=== PATIENT | female | born 2000 | race Hispanic/Latino ===

== ENCOUNTER 2024-06-06 06:56 | Emergency (ER) | payer BC, SELFPAY ==
[2024-06-06] MEDS ORDERED: NA CHLORIDE 0.9% 1,000 ML ONE (07:25)
[2024-06-06 07:30] LABS: Absolute Eosinophils 0.2 K/uL (0-0.5); Absolute Lymphocytes (CBC) 1.3 K/uL (0.7-4.9); Absolute Monocytes 0.4 K/uL (0.1-1.3); Absolute Neutrophil 2.8 K/uL (1.8-8.0); Hematocrit 37.7 % (36.0-45.0); Hemoglobin 12.5 g/dL (12.0-15.0); Lymphocytes % 27.5 % (15.3-44.8); MCH 29.9 pg (27.0-35.0); MCHC 33.1 g/dL (32.0-36.0); MCV 90.2 fL (80-100); MPV 8.7 fL (7.6-11.3); Neutrophils % 58.5 % (41.7-73.7); Platelets 195 thou/uL (152-406); RBC Red Blood Cell Count 4.18 M/uL (3.86-4.86); Red Cell Distribution Width 12.7 % (12.1-15.2)
[2024-06-06 07:44] LABS: Albumin 3.6 g/dL (3.4-5.0); Albumin/Globulin Ratio 1.1 (1.1-1.8); Anion Gap 8.7 mEq/L (5.0-15.0); Bilirubin Total 0.4 mg/dL (0.2-1.0); Globulin 3.3 g/dL (2.3-3.5); Potassium 3.7 mEq/L (3.5-5.1); Protein, Total 6.9 g/dL (6.4-8.2)
--- NOTE | 2024-06-06 08:18 | ER ---
Nurse's Notes [facility] Name: Yina Duran Age: 24 yrs Sex: Female : 2000 Arrival Date: 06/06/2024 Time: 06:56 Bed 17 Private MD: Diagnosis: Alcohol use, unspecified;Syncope Near;Hypoglycemia, unspecified Presentation: 06/06 06:57 Chief complaint: EMS states: PT passed out and hit tile floor with head, c/o head pain, bm8 neck pain. Blood sugar was checked, 55. we gave oral glucose and now its 88. Coronavirus screen: At this time, the client does not indicate any symptoms associated with coronavirus-19. Ebola Screen: Patient negative for fever greater than or equal to 101.5 degrees Fahrenheit, and additional compatible Ebola Virus Disease symptoms Patient denies exposure to infectious person. Patient denies travel to an Ebola-affected area in the 21 days before illness onset. No symptoms or risks identified at this time. 06:57 Method Of Arrival: EMS: [facility] bm8 07:00 Initial Sepsis Screen: Does the patient meet any 2 criteria? No. Patient's initial bm8 sepsis screen is negative. Does the patient have a suspected source of infection? No. Patient's initial sepsis screen is negative. Risk Assessment: Do you want to hurt yourself or someone else? Patient reports no desire to harm self or others. Onset of symptoms was June 06, 2024 at 06:00. Care prior to arrival: Cervical collar in place. IV initiated. 20 GA, in the left antecubital area, Glucose check: 88. 07:00 Acuity: ABBI 3 bm8 Triage Assessment: 07:00 General: Appears in no apparent distress. comfortable, Behavior is calm, cooperative, bm8 appropriate for age. Pain: Complains of pain in head and neck Pain currently is 0 out of 10 on a pain scale. EENT: No deficits noted. Neuro: Level of Consciousness is awake, alert, obeys commands, Oriented to person, place, time, situation, Appropriate for age. Cardiovascular: Denies chest pain, Capillary refill < 3 seconds in bilateral fingers Patient's skin is warm and dry. Respiratory: Airway is patent Respiratory effort is even, unlabored, Respiratory pattern is regular, symmetrical, Breath sounds are clear bilaterally. GI: No signs and/or symptoms were reported involving the gastrointestinal system. : No signs and/or symptoms were reported regarding the genitourinary system. Derm: No signs and/or symptoms reported regarding the dermatologic system. Musculoskeletal: Circulation, motion, and sensation intact. Capillary refill < 3 seconds, in bilateral fingers. Reports pain in head and neck. 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 - Infectious Disease History:: Denies. - Family history:: not pertinent. - Social history:: Smoking status: Patient denies any tobacco usage or history of. Screenin:00 [facility] ED Fall Risk Assessment (Adult) History of falling in the last 3 months, rs5 including since admission Yes- single mechanical fall (1 pt) Confusion or Disorientation No (0 pts) Intoxicated or Sedated No (0 pts) Impaired Gait No (0 pts) Mobility Assist Device Used No (0 pt) Altered Elimination No (0 pt) Score/Fall Risk Level 0 - 2 = Low Risk Oriented to surroundings, Maintained a safe environment. Abuse screen: Denies threats or abuse. Nutritional screening: No deficits noted. Tuberculosis screening: No symptoms or risk factors identified. Assessment: 07:00 General: Appears in no apparent distress. uncomfortable, Behavior is calm, cooperative. rs5 Pain: Complains of pain in back of head Pain currently is 3 out of 10 on a pain scale. Quality of pain is described as aching, Is continuous. Neuro: Level of Consciousness is awake, alert, obeys commands, Oriented to person, place, time, situation. Cardiovascular: Patient's skin is warm and dry. Respiratory: Airway is patent Respiratory effort is even, unlabored, Respiratory pattern is regular, symmetrical. GI: Abdomen is round non-distended, Abd is soft and non tender X 4 quads. : No signs and/or symptoms were reported regarding the genitourinary system. EENT: No signs and/or symptoms were reported regarding the EENT system. Derm: Skin is intact, Skin is pink, warm \T\ dry. Musculoskeletal: Range of motion: intact in all extremities. 08:01 Reassessment: Patient and/or family updated on plan of care and expected duration. Pain rs5 level reassessed. Patient is alert, oriented x 3, equal unlabored respirations, skin warm/dry/pink. 08:40 Reassessment: Patient and/or family updated on plan of care and expected duration. Pain rs5 level reassessed. Patient is alert, oriented x 3, equal unlabored respirations, skin warm/dry/pink. Vital Signs: 06:57 BP 100 / 80; Pulse 100; Resp 18; Temp 97.8; Pulse Ox 100% ; Weight 56.7 kg; Height 5 bm8 ft. 8 in. ; Pain 0/10; 08:50 BP 110 / 79; Pulse 74; Resp 17; Pulse Ox 99% on R/A; rs5 06:57 Body Mass Index 19.01 (56.70 kg, 172.72 cm) bm8 06:57 Pain Scale: Adult bm8 ED Course: 06:57 Patient arrived in ED. bm8 07:00 Arm band placed on right wrist. bm8 07:00 Patient has correct armband on for positive identification. Placed in gown. Side rails rs5 up X2. 07:00 No provider procedures requiring assistance completed. rs5 07:01 Triage completed. bm8 07:02 Martinez Fair MD is Attending Physician. [facility] 07:12 Justus Ontiveros, RN is Primary Nurse. rs5 07:26 Head C Spine Mpr Wo Con In Process Unspecified. EDMS 08:49 IV discontinued, intact, bleeding controlled, No redness/swelling at site. Pressure rs5 dressing applied. 08:50 Provided Education on: discharge instruction s. rs5 Administered Medications: 07:15 Drug: NS 0.9% IV 1000 ml IV at 1000 ml once; to be given as a bolus over 60 minutes rs5 Route: IV; Rate: 1000 ml; Site: left antecubital; 08:00 Follow up: Response: No adverse reaction; IV Status: Completed infusion; IV Intake: rs5 1000ml Medication: 08:50 VIS not applicable for this client. rs5 Intake: 08:00 IV: 1000ml; Total: 1000ml. rs5 Outcome: 08:18 Discharge ordered by . [facility] 08:49 Discharged to home ambulatory, rs5 08:49 Condition: stable 08:49 Discharge instructions given to patient, family, Instructed on discharge instructions, follow up and referral plans. Demonstrated understanding of instructions, follow-up care, 08:51 Patient left the ED. rs5 Signatures: Dispatcher [employer] Martinez Kc MD MD cha Sotelo, Ricky, RN RN rs5 Clinton Em RN RN bm8
--- NOTE | 2024-06-06 08:18 | EDPHYS ---
Physician Documentation [facility] Name: Yina Duran Age: 24 yrs Sex: Female : 2000 Arrival Date: 06/06/2024 Time: 06:56 Bed 17 Private MD: ED Physician Martinez Fair HPI: 06/06 08:11 This 24 yrs old Female presents to ER via EMS with complaints of Low Blood josh Sugar, Head Injury-Adult. 08:11 The patient or guardian reports hypoglycemia. Onset: The symptoms/episode josh began/occurred this morning, today. Associated signs and symptoms: Pertinent positives: nausea. Current symptoms: In the emergency department the patient's symptoms have improved, moderately, is more alert. The patient has not experienced similar symptoms in the past. 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 - Infectious Disease History:: Denies. - Family history:: not pertinent. - Social history:: Smoking status: Patient denies any tobacco usage or history of. ROS: 08:12 Constitutional: Negative for fever, chills, and weight loss, Eyes: Negative for injury, josh pain, redness, and discharge, ENT: Negative for injury, pain, and discharge, Neck: Negative for injury, pain, and swelling, Cardiovascular: Negative for chest pain, palpitations, and edema, Respiratory: Negative for shortness of breath, cough, wheezing, and pleuritic chest pain, Abdomen/GI: Negative for abdominal pain, nausea, vomiting, diarrhea, and constipation, Back: Negative for injury and pain, : Negative for injury, bleeding, discharge, and swelling, MS/Extremity: Negative for injury and deformity, Skin: Negative for injury, rash, and discoloration, Psych: Negative for depression, anxiety, suicide ideation, homicidal ideation, and hallucinations, Allergy/Immunology: Negative for hives, rash, and allergies, Endocrine: Negative for neck swelling, polydipsia, polyuria, polyphagia, and marked weight changes, Hematologic/Lymphatic: Negative for swollen nodes, abnormal bleeding, and unusual bruising, 08:12 Neuro: Positive for dizziness, weakness, Exam: 08:12 Constitutional: This is a well developed, well nourished patient who is awake, alert, johs and in no acute distress. Head/Face: Normocephalic, atraumatic. Eyes: Pupils equal round and reactive to light, extra-ocular motions intact. Lids and lashes normal. Conjunctiva and sclera are non-icteric and not injected. Cornea within normal limits. Periorbital areas with no swelling, redness, or edema. ENT: Nares patent. No nasal discharge, no septal abnormalities noted. Tympanic membranes are normal and external auditory canals are clear. Oropharynx with no redness, swelling, or masses, exudates, or evidence of obstruction, uvula midline. Mucous membranes moist. Neck: Trachea midline, no thyromegaly or masses palpated, and no cervical lymphadenopathy. Supple, full range of motion without nuchal rigidity, or vertebral point tenderness. No Meningismus. Chest/axilla: Normal chest wall appearance and motion. Nontender with no deformity. No lesions are appreciated. Cardiovascular: Regular rate and rhythm with a normal S1 and S2. No gallops, murmurs, or rubs. Normal PMI, no JVD. No pulse deficits. Respiratory: Lungs have equal breath sounds bilaterally, clear to auscultation and percussion. No rales, rhonchi or wheezes noted. No increased work of breathing, no retractions or nasal flaring. Abdomen/GI: Soft, non-tender, with normal bowel sounds. No distension or tympany. No guarding or rebound. No evidence of tenderness throughout. Back: No spinal tenderness. No costovertebral tenderness. Full range of motion. Skin: Warm, dry with normal turgor. Normal color with no rashes, no lesions, and no evidence of cellulitis. MS/ Extremity: Pulses equal, no cyanosis. Neurovascular intact. Full, normal range of motion. Neuro: Awake and alert, GCS 15, oriented to person, place, time, and situation. Cranial nerves II-XII grossly intact. Motor strength 5/5 in all extremities. Sensory grossly intact. Cerebellar exam normal. Normal gait. Psych: Awake, alert, with orientation to person, place and time. Behavior, mood, and affect are within normal limits. 08:12 ECG was reviewed by the Attending Physician. Vital Signs: 06:57 BP 100 / 80; Pulse 100; Resp 18; Temp 97.8; Pulse Ox 100% ; Weight 56.7 kg; Height 5 bm8 ft. 8 in. ; Pain 0/10; 08:50 BP 110 / 79; Pulse 74; Resp 17; Pulse Ox 99% on R/A; rs5 06:57 Body Mass Index 19.01 (56.70 kg, 172.72 cm) bm8 06:57 Pain Scale: Adult bm8 MDM: 07:03 Medical Screening Exam initiated josh 08:14 Differential diagnosis: hypoglycemic episode. Data reviewed: vital signs, nurses notes, [facility] lab test result(s), EKG, radiologic studies, CT scan. Consideration of Admission/Observation Escalation of care including admission/observation considered. I considered the following discharge prescriptions or medication management in the emergency department Medications were administered in the Emergency Department. See MAR. Independent interpretation of the following test(s) in the Emergency Department EKG: See my EKG interpretation above. Test considered but Not performed: Ultrasound no 2 d echo. 06/06 07:09 Order name: CBC with Diff; Complete Time: 08:19 [facility] 06/06 07:09 Order name: Comprehensive Metabolic Panel; Complete Time: 08:19 [facility] 06/06 07:31 Order name: Glucose, Ancillary Testing; Complete Time: 08:19 EDMS 06/06 07:26 Order name: Head C Spine Mpr Wo Con EDMS 06/06 07:09 Order name: EKG - Nurse/Tech; Complete Time: 08:11 [facility] EC:12 Rate is 89 beats/min. Rhythm is regular. QRS [place] is Normal. NH interval is normal. QRS josh interval is normal. QT interval is normal. No Q waves. T waves are Normal. No ST changes noted. Clinical impression: NSR w/ Non-specific ST/T Changes, 1st degree heart block, and No evidence of ischemia. Interpreted by me. Reviewed by me. Administered Medications: 07:15 Drug: NS 0.9% IV 1000 ml IV at 1000 ml once; to be given as a bolus over 60 minutes rs5 Route: IV; Rate: 1000 ml; Site: left antecubital; 08:00 Follow up: Response: No adverse reaction; IV Status: Completed infusion; IV Intake: rs5 1000ml Disposition Summary: 06/06/24 08:18 Discharge Ordered Notes: Location: Home josh Problem: new josh Symptoms: have improved josh Condition: Stable josh Diagnosis - Alcohol use, unspecified josh - Syncope Near josh - Hypoglycemia, unspecified josh Followup: josh - With: Private Physician - When: 2 - 3 days - Reason: Recheck today's complaints, Continuance of care, Re-evaluation by your physician Discharge Instructions: - Discharge Summary Sheet josh - Alcohol Use Disorder josh - Hypoglycemia josh - Near-Syncope josh - Near-Syncope, Awlf-so-Bomw josh - Alcohol Abuse and Nutrition josh - Blood Glucose Monitoring, Adult josh - Hypoglycemia, [id number] josh - Preventing Hypoglycemia josh Forms: - Medication Reconciliation Form josh - Antibiotic Education jsoh - Prescription Opioid Use josh - Patient Portal Instructions josh - Leadership Thank You Letter josh Signatures: Dispatcher [employer] EDMartinez Rojas MD MD cha Sotelo, Ricky RN RN rs5 Corrections: (The following items were deleted from the chart) 07:10 07:10 CBC+H.LAB.BRZ ordered. EDMS EDMS 07:10 07:10 COMPREHENSIVE METABOLIC PANEL+C.LAB.BRZ ordered. EDMS EDMS 07:10 07:10 Urinalysis+U.LAB.BRZ ordered. EDMS EDMS 07:10 07:10 Test, Urine+UC.LAB.BRZ ordered. EDMS EDMS 07:10 07:10 Head Brain Wo Cont+CT.RAD.BRZ ordered. EDMS EDMS
--- NOTE | 2024-06-06 08:44 | RAD REPORT ---
EXAMINATION: CT HEAD WITHOUT CONTRAST CT CERVICAL SPINE WITHOUT CONTRAST CLINICAL INDICATION: Syncope. Head and neck injury status post fall. Head and neck pain TECHNIQUE: Axial CT images from the skull base to the vertex without intravenous contrast. Axial CT i mages through the cervical spine were obtained without intravenous contrast. Sagittal and coronal reformatted images were created from the data set. Coronal and sagittal reformatted images were creat ed from the data set. One or more of the following dose reduction techniques were used: Automated exposure control, adjustment of the mA and/or kV according to patient size, and/or iterative reconstr uction. Unless otherwise specified, incidental findings do not require dedicated imaging follow-up. [id number]. Comparison: none FINDINGS: An intracranial bleed is not seen. Ventricles are normal in caliber. No significant hypodensity within the brain No extra-axial fluid collection. Opacification left aspect of the sphenoid sinus compatible ascites. No fracture or dislocation is seen involving the cervical spine. IMPRESSION: No acute intracranial abnormality noted A cervical fracture is not seen. 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
[2024-06-06 08:55] VITALS: TEMP 97.8
[2024-06-06 08:57] VITALS: BP 110/79; O2SAT 99
--- NOTE | 2024-06-09 10:21 | EKG ---
Test Date: 2024-06-06 Test Time: 07:36:59 Hypnotherapist: FRANCOISE MEASUREMENT RESULTS: Intervals: Rate: 89 RI: 236 QRSD: 92 QT: 354 QTc: 430 [place]: P: 63 RI: 236 QRS: 75 T: 27 INTERPRETIVE STATEMENTS: Sinus rhythm with 1st degree AV block Nonspecific T wave abnormality Abnormal ECG No previous ECG available for comparison Electronically Signed On 06-09-24 10:20:05 NETBACKUP ADMIN by Júnior Be
== END 2024-06-06 08:51 | disposition home or self-care (01) ==
LOC: ER 06:56
DX: F10.90 Alcohol use, unspecified, uncomplicated (principal); E16.2 Hypoglycemia, unspecified; R55 Syncope and collapse
CPT/HCPCS: 93005; 85025; 36415; 82947 ×2; 80053; 70450; 72125; J7030